=== PATIENT | female | born 1980 | race African-American/Black ===

== ENCOUNTER 2017-05-23 20:49 | Emergency (ER) | payer SELFPAY | END 2017-05-23 22:10 | disposition left against medical advice (07) | LOC: MADERS 20:49 | DX: Z53.21 Procedure and treatment not carried out due to patient leaving prior to being seen by health care provider (principal) ==

== ENCOUNTER 2017-06-07 18:39 | Emergency (ER) | payer SELFPAY ==
[2017-06-07] MEDS ORDERED: predniSONE 20 MG TAB ONE (19:02)
[2017-06-07] MEDS ORDERED: HYDROcodone/Acetaminophen 10/325 mg Tablet ONE (19:11)
[2017-06-07 19:24] LABS: #Basophils 0.1 thou/uL (0.0-0.2); #Eosinphils 0.4 thou/uL (0.0-0.7); #Lymphocytes 2.9 thou/uL (1.20-3.40); #Monocytes 0.6 thou/uL (0.11-0.59); #Neutrophils 5.5 thou/uL (1.40-6.50); %Basophils 0.6 % (0.0-1.0); %Eosinophils 4.4 % (0.0-10.0); %Lymphocytes 30.9 % (21.0-51.0); %Monocytes 6.2 % (0.0-10.0); %Neutrophils 57.9 % (42.0-75.0); Hemoglobin 11.2 g/dL (12.0-16.0); Mean Corpuscular HGB CONC 32.8 g/dL (32.0-36.0); Mean Corpuscular Hemoglobin 33.4 pg (27.0-31.0); Mean Corpuscular Volume 101.8 fl (81.0-99.0); Mean Platelet Volume 6.3 fL (7.4-10.4); Platelet Count 262 thou/uL (130-400); RBC Distribution Width 12.8 % (11.5-14.5); Red Blood Cell (RBC) Count 3.37 mill/uL (4.20-5.40); White Blood Cell (WBC) Count 9.5 thou/uL (4.8-10.8)
[2017-06-07 19:42] LABS: Anion Gap 15 mmol/L (10-20); BUN (Urea Nitrogen) 9 mg/dL (7.0-18.7); Calc. Creatinine Clearance 0 mL/min (70-130); Calcium 8.7 mg/dL (7.8-10.44); Carbon Dioxide 23 mmol/L (22-29); Chloride 105 mmol/L (98-107); Estimated GFR-MDRD 89; Glucose 103 mg/dL (70-105); Sodium 139 mmol/L (136-145)
[2017-06-07 19:44] LABS: Acetaminophen Less than 6.0 mcg/mL (10.0-30.0); Alcohol Less than 10 mg/dL (Less than 10); Salicylate Less than 8.0 mg/dL (15.0-30.0)
[2017-06-07 19:45] LABS: CKMB 1.1 ng/mL (0-6.6); Troponin I Less than 0.010 ng/mL (< 0.028)
--- NOTE | 2017-06-07 20:09 | RAD ---
FRONTAL VIEW CHEST: CLINICAL HISTORY: Dyspnea. COMPARISON: No prior comparison. FINDINGS: There is added density of the mid to lower chest bilaterally, some of which relates to overlying body wall soft tissues. There is prominence of the perihilar regions. The cardiac silhouette is accentu ated. There is no obvious pleural effusion of significance or discrete pneumothorax. IMPRESSION: Added density of the chest from overlying body wall soft tissues. A component of underlying edema is not excluded. Consider imaging followup as necessary. POS: TED
== END 2017-06-07 20:20 | disposition home or self-care (01) ==
LOC: MADERS 18:39
DX: J20.9 Acute bronchitis, unspecified (principal); M06.9 Rheumatoid arthritis, unspecified; I10 Essential (primary) hypertension; F41.9 Anxiety disorder, unspecified; F32.9 Major depressive disorder, single episode, unspecified; F17.210 Nicotine dependence, cigarettes, uncomplicated; Z79.899 Other long term (current) drug therapy
CPT/HCPCS: 71045; 80048; 80307; 82553; 83880; 84484; 85025; 93005; 94640; 94760; J7506; J7620

== ENCOUNTER → 2017-06-30 | Emergency (ER) | payer SELFPAY ==
[~2017-06-30] MED LIST: AMOXicillin 250 MG CAP ONE; Naproxen 500 MG TAB ONE; traMADol HCl 50 MG TAB ONE
== END ==
LOC: MADERS 14:56
DX: K04.7 Periapical abscess without sinus (principal); K02.9 Dental caries, unspecified; K03.81 Cracked tooth; G89.29 Other chronic pain; M79.606 Pain in leg, unspecified; I10 Essential (primary) hypertension; F41.9 Anxiety disorder, unspecified; F32.9 Major depressive disorder, single episode, unspecified; F17.210 Nicotine dependence, cigarettes, uncomplicated; Z79.899 Other long term (current) drug therapy
CPT/HCPCS: 99282

== ENCOUNTER 2017-07-19 23:24 | Emergency (ER) | payer OTHER, SELFPAY ==
[2017-07-19] MEDS ORDERED: traMADol HCl 50 MG TAB ONE (23:55)
[2017-07-19] MEDS ORDERED: Ibuprofen 800 MG TAB ONE (23:55)
[2017-07-19] MEDS ORDERED: Clindamycin 150 MG CAP ONE (23:55)
== END 2017-07-20 00:20 | disposition home or self-care (01) ==
LOC: MADERS 23:24
DX: K02.9 Dental caries, unspecified (principal); M06.9 Rheumatoid arthritis, unspecified; I10 Essential (primary) hypertension; F41.9 Anxiety disorder, unspecified; F32.9 Major depressive disorder, single episode, unspecified; F17.210 Nicotine dependence, cigarettes, uncomplicated
CPT/HCPCS: 99282

== ENCOUNTER 2017-10-08 21:00 | Emergency (ER) | payer SELFPAY ==
[2017-10-08] MEDS ORDERED: Ibuprofen 800 MG TAB ONE (21:31)
[2017-10-08] MEDS ORDERED: Acetaminophen 500 MG TAB ONE (21:31)
[2017-10-08] MEDS ORDERED: HYDROcodone/Acetaminophen 10/325 mg Tablet ONE (21:31)
[2017-10-08] MEDS ORDERED: Penicillin V Potassium 250 MG TAB ONE (21:31)
== END 2017-10-08 21:47 | disposition home or self-care (01) ==
LOC: MADERS 21:00
DX: K04.7 Periapical abscess without sinus (principal); M06.9 Rheumatoid arthritis, unspecified; I10 Essential (primary) hypertension; J42 Unspecified chronic bronchitis; F41.9 Anxiety disorder, unspecified; F32.9 Major depressive disorder, single episode, unspecified; F17.210 Nicotine dependence, cigarettes, uncomplicated; E66.9 Obesity, unspecified
CPT/HCPCS: 99282

== ENCOUNTER 2017-10-29 13:33 | Emergency (ER) | payer SELFPAY ==
[2017-10-29] MEDS ORDERED: traMADol HCl 50 MG TAB ONE (14:02)
== END 2017-10-29 14:14 | disposition home or self-care (01) ==
LOC: MADERS 13:33
DX: I87.2 Venous insufficiency (chronic) (peripheral) (principal); Z76.0 Encounter for issue of repeat prescription; M19.90 Unspecified osteoarthritis, unspecified site; E66.9 Obesity, unspecified; I10 Essential (primary) hypertension; F17.210 Nicotine dependence, cigarettes, uncomplicated; F41.9 Anxiety disorder, unspecified; F32.9 Major depressive disorder, single episode, unspecified; J42 Unspecified chronic bronchitis; Z79.891 Long term (current) use of opiate analgesic; Z79.899 Other long term (current) drug therapy
CPT/HCPCS: 99283

== ENCOUNTER 2017-11-29 15:43 | Emergency (ER) | payer SELFPAY | END 2017-11-29 16:49 | disposition home or self-care (01) | LOC: MADERS 15:43 | DX: M25.561 Pain in right knee (principal); G89.29 Other chronic pain; I10 Essential (primary) hypertension; E66.9 Obesity, unspecified; M19.90 Unspecified osteoarthritis, unspecified site; J40 Bronchitis, not specified as acute or chronic; F41.9 Anxiety disorder, unspecified; F32.9 Major depressive disorder, single episode, unspecified; F17.210 Nicotine dependence, cigarettes, uncomplicated; Z79.899 Other long term (current) drug therapy | CPT/HCPCS: 99283 ==